=== PATIENT | female | born 1955 | race Caucasian/White ===

== ENCOUNTER 2020-10-12 09:03 | Emergency (ER) | payer BC, MEDICARE, OTHER ==
[2020-10-12] MEDS ORDERED: Sodium Chloride 0.9% 10 ML Syringe FLUSH PRN (09:19)
[2020-10-12] MEDS ORDERED: Sodium Chloride 0.9% 2.5 ML Syringe FLUSH PRN (09:19)
[2020-10-12] MEDS ORDERED: Sodium Chloride 0.9% 1,000 ML IV SCH (09:30)
--- NOTE | 2020-10-12 09:44 | EDM.PDOC ---
ED HPI GENERAL MEDICAL PROBLEM - General Chief Complaint: Flank Pain Stated Complaint: SPOTTING, L SIDE PAIN Time Seen by Provider: 10/12/20 09:12 Source of Information: Reports: Patient - History of Present Illness INITIAL COMMENTS - FREE TEXT/NARRATIVE: 65-year-old female presenting with back pain, constant for the last 2 weeks, located in the left flank. Previously had similar symptoms in the past, usually present when awakening but improved after walking around for a few hours and without any clear diagnosis prior work-up, however in the last 2 weeks it has now become more constant. She also reports for the last 2 weeks or so she has had vaginal spotting. Just a small amount, uses one panty liner for the whole day and describes it as occasional bright red spotting and other times brown-colored blood spotting. She does report that though she does not get menstrual periods, about once a year she does get several days of vaginal spotting, however it has never lasted this long. No chest pain or difficulty breathing. No fever or chills. No nausea or vomiting. No diarrhea. No dysuria. Blood in the urine. No blood in the stool. Duration: Week(s): (2) Location: Reports: Back. Denies: Radiates to Quality: Reports: Ache Improves with: Reports: None Worsens with: Reports: None L flank Pain Score (Numeric/FACES): 6 - Related Data Allergies Allergy/AdvReac Type Severity Reaction Status Date / Time adhesive Allergy Rash Verified 10/12/20 09:42 Penicillins Allergy Hives Verified 02/18/16 15:02 pseudoephedrine Allergy Itching Verified 02/18/16 15:02 Ujosfze-Twz-Asv Reductase Allergy Itching Verified 10/12/20 09:42 Inhibitor metal Allergy Cannot Uncoded 10/12/20 09:42 Remember Home Meds: Home Meds Gemfibrozil [Lopid] 1 tab PO BIDAC 02/18/16 [History] Insulin Aspart [NovoLOG] 5 unit SUBCUT TIDMEALS 02/18/16 [History] Insulin Detemir [Levemir Flextouch] 51 unit SQ BID 02/18/16 [History] Irbesartan 1 tab PO DAILY 02/18/16 [History] Venlafaxine HCl [Venlafaxine ER] 1 tab PO DAILY 02/18/16 [History] amLODIPine [Norvasc] 1 tab PO DAILY 02/18/16 [History] carvediloL [Carvedilol] 2 tab PO BID 02/18/16 [History] cephALEXin [Keflex] 1,000 mg PO BID #40 cap 10/12/20 [Rx] Past Medical History Cardiovascular History: Reports: Hypertension Genitourinary History: Reports: Acute Renal Failure [employer]IC[facility] History: Reports: Endocrine/Metabolic History: Reports: Diabetes, Type II Social & Family History - Family History Family Medical History: No Pertinent Family History ED ROS GENERAL - Review of Systems Review Of Systems: See Below Constitutional: Reports: No Symptoms Respiratory: Reports: No Symptoms Cardiovascular: Reports: No Symptoms GI/Abdominal: Reports: Constipation. Denies: Abdominal Pain, Black Stool, Bloody Stool, Diarrhea, Distension ED EXAM, GENERAL - Physical Exam Exam: See Below General Appearance: Alert, WD/WN, No Apparent Distress Head: Atraumatic, Normocephalic Neck: Normal Inspection, Supple Respiratory/Chest: No Respiratory Distress Cardiovascular: Regular Rate, Rhythm GI/Abdominal: Soft, Non-Tender, No Organomegaly, No Distention, No Mass Back Exam: Normal Inspection, Full Range of Motion. No: CVA Tenderness (L), CVA Tenderness (R), Decreased Range of Motion, Muscle Spasm, Paraspinal Tenderness, Vertebral Tenderness Extremities: Normal Inspection, Normal Range of Motion Neurological: Alert, Oriented, Normal Gait Psychiatric: Normal Affect, Normal Mood Skin Exam: Warm, Dry, Intact Course - Vital Signs Text/Narrative:: Flank pain with no CVA tenderness. Associated vaginal spotting. Symptoms have been ongoing/worsening for the last 2 weeks. Differential diagnosis includes AAA or dissection versus mass versus neoplasm versus renal stone. UA does appear to be infected, possible UTI. CT shows no renal stone and questionable likely chronic common iliac artery dissection/flap and enlarged uterus. No other acute pathology. Ultrasound performed of the uterus which shows thickening and polyps or cysts. Concern for possible neoplasm versus other etiology. All of the above were discussed with the patient. I discussed the CT findings with vascular surgery at [facility] who agree that the patient can seek outpatient treatment and feel that this may be an artifactual finding, but will follow up with the patient and recheck imaging. Patient will need to follow-up outpatient with [facility]IC[facility] as well for further evalu ation of the uterine wall thickening. The patient feels comfortable with the plan for all of the above. Antibiotics sent to the patient's pharmacy of choice Last Recorded V/S: Last Vital Signs Temp 96.7 F L 10/12/20 09:18 Pulse 72 10/12/20 16:53 Resp 18 10/12/20 16:53 BP 138/67 10/12/20 16:53 Pulse Ox 94 L 10/12/20 16:53 - Orders/Labs/Meds Orders: Active Orders 24 hr Category Date Time Status Sodium Chloride 0.9% [Normal Saline] 1,000 ml Med 10/12/20 09:30 Active IV ASDIRECTED Sodium Chloride 0.9% [Saline Flush] Med 10/12/20 09:19 Active 10 ml FLUSH ASDIRECTED PRN Sodium Chloride 0.9% [Saline Flush] Med 10/12/20 09:19 Active 2.5 ml FLUSH ASDIRECTED PRN Saline Lock Insert [OM.PC] Stat Oth 10/12/20 09:19 Ordered Medication Orders Sodium Chloride (Normal Saline) 1,000 mls @ 999 mls/hr IV ASDIRECTED KAIN Last Admin: 10/12/20 10:10 Dose: 999 mls/hr Documented by: FELICIA Sodium Chloride (Sodium Chloride 0.9% 10 Ml Syringe) 10 ml FLUSH ASDIRECTED PRN PRN Reason: Keep Vein Open Last Admin: 10/12/20 10:11 Dose: 10 ml Documented by: TERRANCEG Sodium Chloride (Sodium Chloride 0.9% 2.5 Ml Syringe) 2.5 ml FLUSH ASDIRECTED PRN PRN Reason: Keep Vein Open Last Admin: 10/12/20 10:11 Dose: 2.5 ml Documented by: FELICIA Labs: Laboratory Tests 10/12/20 10/12/20 10/12/20 Range/Units 09:25 09:30 09:30 WBC 8.93 (4.0-11.0) K/uL RBC 4.69 (4.30-5.90) M/uL Hgb 14.5 (12.0-16.0) g/dL Hct 45.0 (36.0-46.0) % MCV 95.9 (80.0-98.0) fL MCH 30.9 (27.0-32.0) pg MCHC 32.2 (31.0-37.0) g/dL RDW Std Deviation 47.8 (28.0-62.0) fl RDW Coeff of Derrick 14 (11.0-15.0) % Plt Count 181 (150-400) K/uL MPV 10.40 (7.40-12.00) fL Neut % (Auto) 62.7 (48.0-80.0) % Lymph % (Auto) 23.7 (16.0-40.0) % Caroline % (Auto) 9.9 (0.0-15.0) % Eos % (Auto) 3.4 (0.0-7.0) % Baso % (Auto) 0.3 (0.0-1.5) % Neut # (Auto) 5.6 (1.4-5.7) K/uL Lymph # (Auto) 2.1 (0.6-2.4) K/uL Caroline # (Auto) 0.9 H (0.0-0.8) K/uL Eos # (Auto) 0.3 (0.0-0.7) K/uL Baso # (Auto) 0.0 (0.0-0.1) K/uL Nucleated RBC % 0.0 /100WBC Nucleated RBCs # 0 K/uL INR Sodium 140 (136-145) mmol/L Potassium 4.4 (3.5-5.1) mmol/L Chloride 102 (98-107) mmol/L Carbon Dioxide 29.9 (21.0-32.0) mmol/L BUN 31 H (7.0-18.0) mg/dL Creatinine 1.3 H (0.6-1.0) mg/dL Est Cr Clr Drug Dosing TNP Estimated GFR (MDRD) 40.9 ml/min Glucose 152 H (74-106) mg/dL Calcium 9.3 (8.5-10.1) mg/dL Total Bilirubin 0.5 (0.2-1.0) mg/dL AST 24 (15-37) IU/L ALT 17 (14-63) IU/L Alkaline Phosphatase 111 (46-116) U/L Total Protein 7.9 (6.4-8.2) g/dL Albumin 3.5 (3.4-5.0) g/dL Globulin 4.4 H (2.6-4.0) g/dL Albumin/Globulin Ratio 0.8 L (0.9-1.6) Urine Color YELLOW Urine Appearance SLT CLOUDY Urine pH 5.5 (5.0-8.0) Ur Specific [place] 1.020 (1.001-1.035) Urine Protein NEGATIVE (NEGATIVE) mg/dL Urine Glucose (UA) NEGATIVE (NEGATIVE) mg/dL Urine Ketones NEGATIVE (NEGATIVE) mg/dL Urine Occult Blood LARGE H (NEGATIVE) Urine Nitrite NEGATIVE (NEGATIVE) Urine Bilirubin NEGATIVE (NEGATIVE) Urine Urobilinogen 0.2 (<2.0) EU/dL Ur Leukocyte Esterase MODERATE H (NEGATIVE) Urine RBC NONE SEEN (0-2/HPF) Urine WBC 11-15 (0-5/HPF) Ur Epithelial Cells MANY (NONE-FEW) Urine Bacteria 2+ H (NEGATIVE) Urine Mucus LIGHT (NONE-MOD) 10/12/20 Range/Units 09:30 WBC (4.0-11.0) K/uL RBC (4.30-5.90) M/uL Hgb (12.0-16.0) g/dL Hct (36.0-46.0) % MCV (80.0-98.0) fL MCH (27.0-32.0) pg MCHC (31.0-37.0) g/dL RDW Std Deviation (28.0-62.0) fl RDW Coeff of Derrick (11.0-15.0) % Plt Count (150-400) K/uL MPV (7.40-12.00) fL Neut % (Auto) (48.0-80.0) % Lymph % (Auto) (16.0-40.0) % Caroline % (Auto) (0.0-15.0) % Eos % (Auto) (0.0-7.0) % Baso % (Auto) (0.0-1.5) % Neut # (Auto) (1.4-5.7) K/uL Lymph # (Auto) (0.6-2.4) K/uL Caroline # (Auto) (0.0-0.8) K/uL Eos # (Auto) (0.0-0.7) K/uL Baso # (Auto) (0.0-0.1) K/uL Nucleated RBC % /100WBC Nucleated RBCs # K/uL INR 1.05 Sodium (136-145) mmol/L Potassium (3.5-5.1) mmol/L Chloride (98-107) mmol/L Carbon Dioxide (21.0-32.0) mmol/L BUN (7.0-18.0) mg/dL Creatinine (0.6-1.0) mg/dL Est Cr Clr Drug Dosing Estimated GFR (MDRD) ml/min Glucose (74-106) mg/dL Calcium (8.5-10.1) mg/dL Total Bilirubin (0.2-1.0) mg/dL AST (15-37) IU/L ALT (14-63) IU/L Alkaline Phosphatase (46-116) U/L Total Protein (6.4-8.2) g/dL Albumin (3.4-5.0) g/dL Globulin (2.6-4.0) g/dL Albumin/Globulin Ratio (0.9-1.6) Urine Color Urine Appearance Urine pH (5.0-8.0) Ur Specific [place] (1.001-1.035) Urine Protein (NEGATIVE) mg/dL Urine Glucose (UA) (NEGATIVE) mg/dL Urine Ketones (NEGATIVE) mg/dL Urine Occult Blood (NEGATIVE) Urine Nitrite (NEGATIVE) Urine Bilirubin (NEGATIVE) Urine Urobilinogen (<2.0) EU/dL Ur Leukocyte Esterase (NEGATIVE) Urine RBC (0-2/HPF) Urine WBC (0-5/HPF) Ur Epithelial Cells (NONE-FEW) Urine Bacteria (NEGATIVE) Urine Mucus (NONE-MOD) Meds: Medications Generic Name Dose Route Start Last Admin Trade Name Freq PRN Reason Stop Dose Admin Sodium Chloride 1,000 mls @ 999 mls/hr 10/12/20 09:30 10/12/20 10:10 Normal Saline IV 999 mls/hr ASDIRECTED KAIN Administration Sodium Chloride 10 ml 10/12/20 09:19 10/12/20 10:11 Sodium Chloride 0.9% 10 Ml Syringe FLUSH 10 ml ASDIRECTED PRN Administration Keep Vein Open Sodium Chloride 2.5 ml 10/12/20 09:19 10/12/20 10:11 Sodium Chloride 0.9% 2.5 Ml Syringe FLUSH 2.5 ml ASDIRECTED PRN Administration Keep Vein Open Discontinued Medications Generic Name Dose Route Start Last Admin Trade Name Marguerite PRN Reason Stop Dose Admin Ceftriaxone Sodium/Dextrose Confirm 10/12/20 10:24 10/12/20 11:12 Rocephin In Dextrose,Iso-Osm 1 Gm/50 Ml Administered 10/12/20 10:25 Not Given Dose 50 mls @ as directed .ROUTE .STK-MED ONE Ceftriaxone Sodium/Dextrose 1 50 mls @ 100 mls/hr 10/12/20 11:10 10/12/20 11:12 gm/ Premix IV 10/12/20 11:39 100 mls/hr ONETIME ONE Administration Iopamidol 100 ml 10/12/20 10:39 10/12/20 10:39 Iopamidol 755 Mg/Ml 500 Ml Multipack Bottle IVPUSH 10/12/20 10:40 100 ml ONETIME ONE Administration - Re-Assessments/Exams Free Text/Narrative Re-Assessment/Exam: 10/12/20 12:[address] scan findings with the patient. No known history of chronic aortic dissection. Discussed recommendation for pelvic ultrasound. She agrees with the plan. Discussed UA findings and recommendation for antibiotics which have already been given. 10/12/20 15:[address] White, the vascular surgeon at [facility] in regards to the common iliac artery dissection seen on CT that appears to be chronic. He is currently operating in the OR, but requested to send the images over and he will review them and call me back. I updated the patient on their plan and she agrees and will wait. She does report she is in pain, I offered pain medications of any type, however she declined and reports that she is able to tolerate the pain and does not want anything for pain currently. 10/12/20 16:34 Dr. White called me back after reviewing the images. He suspects artifact versus chronic and not the acute cause for her pain. Recommends outpatient follow-up, he will see her in the office and can reevaluate. I updated the patient on these recommendations. She agrees with this plan. Final discussion with the patient in regards to following up with the vascular surgeon as well as follow-up with [facility]IC[facility] for further evaluation of the endometrial thickening/polyp/cysts. She agrees to do so. Departure - Departure Time of Disposition: 16:36 Disposition: Home, Self-Care 01 Clinical Impression: Flank pain, UTI (urinary tract infection), Endometrial thickening on ultrasound, Iliac artery dissection - Discharge Information Prescriptions: cephALEXin [Keflex] 1,000 mg PO BID #40 cap Instructions: Incidental Abnormal Radiological Finding, Urinary Tract Infection, Adult, [id number], Flank Pain, Adult, [id number] Referrals: Raghavendra Pedraza MD [Primary Care Provider] - 1 Day Francisco Moreno MD [Ordering Only Provider] - 2 Weeks Forms: ED Department Discharge Additional Instructions: 1) pain in your back may be musculoskeletal. You may take Tylenol as needed for this pain. You also do have a urinary tract infection and this may be somewhat related to your pain. Please take the antibiotics as prescribed. 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 This was discussed with the vascular surgeon at [facility] who will see you in follow-up as an outpatient. Please call the office listed above to schedule an appointment soon as possible. 3) vaginal spotting. Thickened endometrium on ultrasound. Please follow-up with the [facility] IN[employer] AND APPLICATOR groups, as soon as possible to have a further work-up. Please bring the radiology read paperwork with you to your appointment. If you develop any worsening symptoms or any concerning symptoms, please return to the emergency department immediately. The following information is given to patients seen in the emergency department who are being discharged to home. This information is to outline your options for follow-up care. We provide all patients seen in our emergency department with a follow-up referral. The need for follow-up, as well as the timing and circumstances, are variable depending upon the specifics of your emergency department visit. If you don't have a primary care physician on staff, we will provide you with a referral. We always advise you to contact your personal physician following an emergency department visit to inform them of the circumstance of the visit and for follow-up with them and/or the need for any referrals to a consulting specialist. The emergency department will also refer you to a specialist when appropriate. This referral assures that you have the opportunity for follow-up care with a specialist. All of these measure are taken in an effort to provide you with optimal care, which includes your follow-up. Under all circumstances we always encourage you to contact your private physician who remains a resource for coordinating your care. When calling for follow-up care, please make the office aware that this follow-up is from your recent emergency room visit. If for any reason you are refused follow-up, please contact the Emergency Department at and asked to speak to the emergency department charge nurse. [facility] [address] [place] [id number] [facility] [address] [place] [id number] Sepsis Event Note (ED) - Evaluation Sepsis Screening Result: No Definite Risk - Focused Exam Vital Signs: Vital Signs Temp Pulse Resp BP Pulse Ox 10/12/20 16:53 72 18 138/67 94 L 10/12/20 15:00 76 76 H 138/65 97 10/12/20 14:00 68 17 174/66 H 96 10/12/20 11:00 68 17 168/74 H 95 10/12/20 10:00 63 16 155/68 H 97 10/12/20 09:18 96.7 F L 72 17 223/86 H 97 - My Orders Last 24 Hours: My Active Orders 10/12/20 09:19 Sodium Chloride 0.9% [Saline Flush] 10 ml FLUSH ASDIRECTED PRN Sodium Chloride 0.9% [Saline Flush] 2.5 ml FLUSH ASDIRECTED PRN Saline Lock Insert [OM.PC] Stat 10/12/20 09:30 Sodium Chloride 0.9% [Normal Saline] 1,000 ml IV ASDIRECTED - Assessment/Plan Last 24 Hours: My Active Orders 10/12/20 09:19 Sodium Chloride 0.9% [Saline Flush] 10 ml FLUSH ASDIRECTED PRN Sodium Chloride 0.9% [Saline Flush] 2.5 ml FLUSH ASDIRECTED PRN Saline Lock Insert [OM.PC] Stat 10/12/20 09:30 Sodium Chloride 0.9% [Normal Saline] 1,000 ml IV ASDIRECTED
[2020-10-12 10:05] LABS: BLOOD UREA NITROGEN,BUN 31 mg/dL (7.0-18.0); CARBON DIOXIDE,CO2 29.9 mmol/L (21.0-32.0); CHLORIDE,CL 102 mmol/L (98-107); GLUCOSE RANDOM 152 mg/dL (74-106); POTASSIUM,K 4.4 mmol/L (3.5-5.1); SODIUM,NA 140 mmol/L (136-145)
[2020-10-12] MEDS ORDERED: cefTRIAXone 1 GM in Sodium Chloride 0.9% 50 ML IV ONE (10:13)
[2020-10-12] MEDS ORDERED: Iopamidol 755 MG/ML 500 ML Multipack Bottle IVPUSH ONE (10:39)
[2020-10-12] MEDS ORDERED: cefTRIAXone 1 GM in Premix Bag 1 BAG IV ONE (11:10)
--- NOTE | 2020-10-12 11:52 | CT ---
INDICATION: Flank pain for 2 weeks. Possible dissection/AAA. TECHNIQUE: Volumetric helical scanning of the abdomen and pelvis was performed with 100 cc of Isovue 370 contrast material IV, imaging performed during the arterial phase of contrast enhancement. Coronal and sagittal reconstructions were obtained. COMPARISON: None. FINDINGS: The abdominal aorta is normal in caliber. There is no evidence of aortic dissection. Calcified plaques are demonstrated in the common iliac arteries, and on images 104-108 of series 402, a left common iliac artery dissection measuring 2.5 cm in length is noted. Flow is demonstrated in the false lumen. This is suspected to be chronic as the flap is somewhat thickened and irregular. No urinary tract stone or obstruction is evident. The kidneys are normal in size and shape and demonstrate normal early nephrograms. The bladder is distended. The uterus is mildly enlarged. The ovaries are grossly negative. Stones and/or sludge is present in the gallbladder. The liver, bile ducts, spleen, adrenal glands and pancreas are unremarkable. No lymphadenopathy or free fluid is demonstrated. No bowel abnormality is apparent. The lung bases are clear, and the heart size is normal. IMPRESSION: 1. Normal abdominal aorta. 2. 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 3. Negative for urinary tract stone and obstruction. 4. Stones and/or sludge in the gallbladder. 5. Mild uterine enlargement. Please note that all CT scans at this facility use dose modulation, iterative reconstruction, and/or weight-based dosing when appropriate to reduce radiation dose to as low as reasonably achievable. Dictated by Esau Lobato MD @ 10/12/2020 11:50:[address] Esau Lobato @ Oct 12 2020 11:50AM
--- NOTE | 2020-10-12 13:55 | US ---
INDICATION: Enlarged uterus, postmenopausal bleeding TECHNIQUE: Ultrasound pelvis transabdominal and transvaginal for better assessment or to better visualize the endometrium. Real time sonographic images with Spectral and color Doppler imaging of the ovaries were obtained. COMPARISON: CT scan abdomen pelvis 10/12/2020 FINDINGS: Uterus: 8.7 centimeter x 6.1 centimeter x 4.7 centimeter normal echotexture of the myometrium. 1.7 centimeter uterine fibroid. Endometrium: Transvaginal imaging was performed to better evaluate the endometrium. 18 millimeters in thickness. Complex material within the endometrial canal may represent cysts, polyps or fluid. Right ovary: The right ovary is not visualized Left ovary: The left ovary is not visualized. Cul-de-sac: No significant free fluid. IMPRESSION: 1.7 centimeter uterine fibroid. Thickened endometrium 18 millimeters with complex material within the endometrial canal possibly representing cysts, polyps or fluid. The ovaries are not visualized. Dictated by Enzo Acosta MD @ 10/12/2020 1:54:[address] Enzo Acosta @ Oct 12 2020 1:54PM
[2020-10-12 16:54] VITALS: BP 138/67; PULSE 72
== END 2020-10-12 17:05 | disposition home or self-care (01) ==
LOC: MW.ED 09:03
DX: N39.0 Urinary tract infection, site not specified (principal); I77.72 Dissection of iliac artery; R94.8 Abnormal results of function studies of other organs and systems; I10 Essential (primary) hypertension; E11.9 Type 2 diabetes mellitus without complications; Z79.4 Long term (current) use of insulin; Z79.899 Other long term (current) drug therapy; Z91.048 Other nonmedicinal substance allergy status; Z88.0 Allergy status to penicillin; Z88.8 Allergy status to other drugs, medicaments and biological substances
CPT/HCPCS: 36415; 74174; 76856; 80053; 81001; 85025; 85610; 96365; 99284; J0696; J7030; Q9967

== ENCOUNTER 2020-11-23 06:30 | Day surgery (SDC) | payer BC, MEDICARE, OTHER ==
--- NOTE | 2020-11-23 06:54 | PCM.PREANE ---
Preanesthetic Assessment - Procedure Proposed Procedure: Dx Hysteroscopy, D&C, Poss Polypectomy, Poss Myomectomy - Anesthesia/Transfusion/Family Hx Anesthesia History: Prior Anesthesia Without Reaction Other Type of Anesthesia Reaction Comment: "hard to put me under anesthesia" Family History of Anesthesia Reaction: No Transfusion History: No Prior Transfusion(s) - Physical Assessment NPO Status Date: 11/22/20 NPO Status Time: 20:30 Height: 5 ft 2.5 in Weight: 95.254 kg (BMI 37.8) ASA Class: 2 Airway Class: Mallampati = 3 Thyro-Mental Finger Breadths: 3 Mouth Opening Finger Breadths: 3 - Lab Values: [id number] - Allergies Allergies/Adverse Reactions: Allergies Allergy/AdvReac Type Severity Reaction Status Date / Time adhesive Allergy Rash Verified 11/20/20 07:47 Penicillins Allergy Hives Verified 11/20/20 07:47 pseudoephedrine Allergy Itching Verified 11/20/20 07:47 Aoxokbz-Bke-Aqd Reductase Allergy Muscle Verified 11/20/20 07:47 Inhibitor Weakness/sore metal Allergy Rash Uncoded 11/20/20 12:42 - Anesthesia Plan Free Text/Narrative:: GETA Pre-Op Medication Ordered: None Beta Chris: Carvedilol Med Last Dose Date: 11/23/20 Med Last Dose Time: 05:30 - Acknowledgements Anesthesia Type Planned: General Anesthesia Pt an Appropriate Candidate for the Planned Anesthesia: Yes Alternatives and Risks of Anesthesia Discussed w Pt/Guardian: Yes Pt/Guardian Understands and Agrees with Anesthesia Plan: Yes PreAnesthesia Questionnaire HEENT History: Reports: Impaired Vision, Other (See Below) Other HEENT History: wears glasses Cardiovascular History: Reports: High Cholesterol, Hypertension Respiratory History: Reports: None Gastrointestinal History: Reports: None Genitourinary History: Reports: Acute Renal Failure, Other (See Below) Other Genitourinary History: hx of dialysis Apr 2012 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: Musculoskeletal History: Reports: Gout, Osteoarthritis Other Musculoskeletal History: ruptured lumbar disc-pain down left leg Neurological History: Reports: None Psychiatric History: Reports: Depression, Other (See Below) Other Psychiatric History: depression in the past Endocrine/Metabolic History: Reports: Diabetes, Type II Hematologic History: Reports: None Immunologic History: Reports: None Oncologic (Cancer) History: Reports: None Dermatologic History: Reports: None - Infectious Disease History Infectious Disease History: Reports: Chicken Pox, Measles, Mumps - Past Surgical History HEENT Surgical History: Reports: None Female Surgical History: Reports: Section - SUBSTANCE USE Tobacco Use Status *Q: Former Tobacco User Tobacco Use Within Last Twelve Months: No - HOME MEDS Home Medications: Home Meds Insulin Detemir [Levemir Flextouch] 54 unit SQ BEDTIME 02/18/16 [History] Irbesartan 150 mg PO DAILY 02/18/16 [History] carvediloL [Carvedilol] 25 mg PO BID 02/18/16 [History] Aspirin [Adult Aspirin Regimen] 81 mg PO DAILY 11/20/20 [History] Cholecalciferol (Vitamin D3) [Vitamin D3] 1,000 units PO DAILY 11/20/20 [History] Colesevelam HCl 6 tab PO DAILY 11/20/20 [History] Furosemide 20 mg PO BID 11/20/20 [History] Hydrocodone/Acetaminophen [Hydrocodone-Acetamin 5-325 mg] 1 tab PO ASDIRECTED PRN 11/20/20 [History] Spironolactone [Aldactone] 12.5 mg PO DAILY 11/20/20 [History] allopurinoL [Zyloprim] 100 mg PO DAILY 11/20/20 [History]
[2020-11-23] MEDS ORDERED: Metoclopramide 10 MG/2 ML SDV ONE (07:07)
[2020-11-23] MEDS ORDERED: Dexmedetomidine 200 MCG/2 ML SDV ONE (07:07)
[2020-11-23] MEDS ORDERED: Ketorolac 30 MG/ML SDV ONE (07:07)
[2020-11-23] MEDS ORDERED: Dexamethasone 4 MG/ML 5 ML MDV ONE (07:07)
[2020-11-23] MEDS ORDERED: Ondansetron 4 MG/2 ML SDV ONE (07:07)
[2020-11-23] MEDS ORDERED: Lidocaine 2% 5 ML SDV ONE (07:07)
[2020-11-23] MEDS ORDERED: Ketamine 500 mg/10 ML MDV ONE (07:07)
[2020-11-23] MEDS ORDERED: fentaNYL 100 MCG/2 ML SDV ONE (07:08)
[2020-11-23] MEDS ORDERED: Propofol 200 MG/20 ML SDV ONE ×2 (07:08→08:50)
[2020-11-23] MEDS ORDERED: Sodium Chloride 0.9% 20 ML ONE (07:14)
[2020-11-23] MEDS ORDERED: Metoclopramide 10 MG/2 ML SDV IVPUSH PRN (08:23)
[2020-11-23] MEDS ORDERED: Naloxone 0.4 MG/ML Syringe IVPUSH PRN (08:23)
[2020-11-23] MEDS ORDERED: HYDROmorphone 2 MG/ML Syringe IVPUSH PRN (08:23)
[2020-11-23] MEDS ORDERED: Albuterol 0.083% 2.5 MG/3 ML Neb Soln NEB PRN (08:23)
[2020-11-23] MEDS ORDERED: fentaNYL 100 MCG/2 ML SDV IVPUSH PRN (08:23)
[2020-11-23] MEDS ORDERED: Ondansetron 4 MG/2 ML SDV IVPUSH PRN ×2 (08:23→08:48)
[2020-11-23] MEDS ORDERED: Morphine 2 MG/ML SYRINGE IVPUSH PRN (08:23)
--- NOTE | 2020-11-23 08:36 | PCM48HPAN ---
Post Anesthesia Note - EVALUATION WITHIN 48HRS OF ANESTHETIC Vital Signs in Normal Range: Yes Patient Participated in Evaluation: Yes Respiratory Function Stable: Yes Airway Patent: Yes Cardiovascular Function Stable: Yes Hydration Status Stable: Yes Pain Control Satisfactory: Yes Nausea and Vomiting Control Satisfactory: Yes Mental Status Recovered: Yes Vital Signs: Last Vital Signs Temp 36.7 C 11/23/20 07:03 Pulse 68 11/23/20 08:34 Resp 14 11/23/20 08:34 BP 90/48 L 11/23/20 08:34 Pulse Ox 95 11/23/20 08:34
--- NOTE | 2020-11-23 08:36 | PCM.POSTAN ---
POST ANESTHESIA ASSESSMENT - MENTAL STATUS Mental Status: Alert, Oriented - VITAL SIGNS Vital Signs: Last Vital Signs Temp 36.7 C 11/23/20 07:03 Pulse 68 11/23/20 08:34 Resp 14 11/23/20 08:34 BP 90/48 L 11/23/20 08:34 Pulse Ox 95 11/23/20 08:34 - RESPIRATORY Respiratory Status: Respiratory Rate WNL, Airway Patent, O2 Saturation Stable - CARDIOVASCULAR CV Status: Pulse Rate WNL, Blood Pressure Stable - GASTROINTESTINAL GI Status: No Symptoms - POST OP HYDRATION Hydration Status: Adequate & Stable
[2020-11-23] MEDS ORDERED: Ketorolac 30 MG/ML SDV IVPUSH PRN (08:48)
[2020-11-23] MEDS ORDERED: Promethazine 25 MG/ML SDV IM PRN (08:48)
[2020-11-23] MEDS ORDERED: Morphine 4 MG/ML Syringe IVPUSH PRN (08:48)
[2020-11-23] MEDS ORDERED: Acetaminophen/oxyCODONE 325-5 MG Tab PO PRN ×2 (08:48)
[2020-11-23] MEDS ORDERED: Ketorolac 30 MG/ML SDV IVPUSH ONE (08:48)
--- NOTE | 2020-11-23 08:55 | PCM.OPNOTE ---
- General Post-Op/Procedure Note Date of Surgery/Procedure: 11/23/20 Operative Procedure(s): Operative Hysteroscopy with removal of endometrial lesion Findings: Normal sized anteverted uterus 2cm endometrial lesion protruding into the endometrial cavity Pre Op Diagnosis: Postmenopausal bleeding Post-Op Diagnosis: Postmenopausal bleeding Anesthesia Technique: General ET Tube Primary Surgeon: Antonette Estrada Anesthesia Provider: Mansi Ledezma Pathology: Endometrial lesion Fluid Replacement, Intraop: 600 EBL in mLs: 300 Complications: None Condition: Good Free Text/Narrative:: Fluid deficit - 330 of NS Intake & Output 11/22/20 11/23/20 11/23/20 22:59 06:59 14:59 Intake Total 700 Balance 700
[2020-11-23 09:55] VITALS: BP 108/64; PULSE 69
--- NOTE | 2020-11-25 06:55 | OR ---
SURGEON: CORBIN MARCUS DATE OF PROCEDURE: 11/23/2020 PREOPERATIVE DIAGNOSES: A 65-year-old, postmenopausal, with postmenopausal bleeding and an endometrial polyp. POSTOPERATIVE DIAGNOSES: A 65-year-old, postmenopausal, with postmenopausal bleeding and an endometrial polyp. PROCEDURES: Operative hysteroscopy with removal of an endometrial lesion. ANESTHESIA: General. ESTIMATED BLOOD LOSS: 5 mL. INTRAVENOUS FLUIDS: 650. FLUID DEFICIT: 350 with normal saline. NOTES AND FINDINGS: Normal-sized anteverted uterus. Hysteroscopy showed an endometrial polyp originating from the posterior myometrial wall, was about 3 to 4 cm, was removed without difficulty. BRIEF HISTORY ABOUT THE PATIENT: 65-yo P2, who had occasional postmenopausal bleeding. However, she was referred to [facility] because of an incidental finding on imaging. Ultrasound was done and showed heterogeneity within the endometrium. Saline ultrasound was done, which confirmed like an endometrial polyp. As a result, the patient was counseled for removal, which she accepted. She was explained the risks, benefits, and alternatives, and she decided to proceed. PROCEDURE IN DETAIL: The patient was taken to the operating room, where general anesthesia was performed without difficulty. She was prepared and draped in the dorsal lithotomy position with Rubio stirrups. The speculum was placed in to expose the cervix. The cervix was dilated to accommodate the MyoSure hysteroscope. The lesion was noted within the endometrium and was then removed with the MyoSure without any difficulty, after which D and C was done. A curettage was done and sent for pathology after which all instruments were removed from the vagina. Fluid deficit was 350. The patient tolerated the procedure well. All instrument and pad counts were correct x2. SHAKA / LEVAR /[id number]
== END 2020-11-23 09:58 | disposition home or self-care (01) ==
LOC: MW.SDS 06:30
PROVIDERS: ATTEND Obstetrics & Gynecology
DX: N84.0 Polyp of corpus uteri (principal); I10 Essential (primary) hypertension; E78.00 Pure hypercholesterolemia, unspecified; E11.9 Type 2 diabetes mellitus without complications; Z98.890 Other specified postprocedural states; Z87.891 Personal history of nicotine dependence; Z79.899 Other long term (current) drug therapy; Z79.82 Long term (current) use of aspirin; Z88.0 Allergy status to penicillin; Z88.8 Allergy status to other drugs, medicaments and biological substances
CPT/HCPCS: 36415; 58558; 82947; 85025; 88305; J1100; J2704; 00952; J1885; J2405; J2765; J3010

== ENCOUNTER 2021-06-06 06:41 | Day surgery (SDC) | payer BC, OTHER, MEDICARE ==
[2021-06-04 12:01] LABS: CARBON DIOXIDE,CO2 26.5 mmol/L (21.0-32.0); POTASSIUM,K 4.1 mmol/L (3.5-5.1)
[~2021-06-06 06:41] MED LIST: Albuterol 0.083% 2.5 MG/3 ML Neb Soln NEB PRN; HYDROmorphone 1 MG/ML Syringe IVPUSH PRN; Lactated Ringers 1,000 ML IV SCH; Metoclopramide 10 MG/2 ML SDV IVPUSH PRN; Morphine 4 MG/ML VIAL IVPUSH PRN; Naloxone 0.4 MG/ML SDV IVPUSH PRN; Ondansetron 4 MG/2 ML SDV IVPUSH PRN; Scopolamine 1.5 MG Transdermal Patch ONE; Sodium Chloride 0.9% 10 ML Syringe FLUSH PRN; Sodium Chloride 0.9% 2.5 ML Syringe FLUSH PRN; Sodium Chloride 0.9% 20 ML SDV IV PRN; ceFAZolin 2 GM in Premix Bag 1 BAG IV ONE; fentaNYL 100 MCG/2 ML SDV IVPUSH PRN
[2021-06-06] MEDS ORDERED: Rocuronium Bromide 50 MG/5 ML Syringe ONE ×2 (07:31→09:45)
[2021-06-06] MEDS ORDERED: Dexmedetomidine 200 MCG/2 ML SDV ONE (07:31)
[2021-06-06] MEDS ORDERED: Midazolam 1 MG/ML 2 ML SDV ONE (07:31)
[2021-06-06] MEDS ORDERED: Dexamethasone 4 MG/ML 5 ML MDV ONE (07:31)
[2021-06-06] MEDS ORDERED: Lidocaine 2% 5 ML SDV ONE (07:31)
[2021-06-06] MEDS ORDERED: Water For Injection, Sterile 20 ML ONE (07:31)
[2021-06-06] MEDS ORDERED: fentaNYL 100 MCG/2 ML SDV ONE (07:31)
[2021-06-06] MEDS ORDERED: Propofol 200 MG/20 ML SDV ONE (07:31)
[2021-06-06] MEDS ORDERED: Esmolol 100 MG/10 ML SDV ONE (07:32)
[2021-06-06] MEDS ORDERED: Fluorescein 5 ML Vial ONE (07:36)
[2021-06-06] MEDS ORDERED: ePHEDrine 50 MG/ML SDV ONE (08:30)
[2021-06-06] MEDS ORDERED: Ketorolac 30 MG/ML SDV ONE (09:01)
[2021-06-06] MEDS ORDERED: Sugammadex Sodium 200 MG/2 ML VIAL ONE (09:01)
[2021-06-06] MEDS ORDERED: Ondansetron 4 MG/2 ML SDV ONE (09:01)
[2021-06-06] MEDS ORDERED: Glycopyrrolate 0.2 MG/ML SDV ONE (09:42)
[2021-06-06] MEDS ORDERED: Octyl 2-Cyanoacrylate 1 Tube ONE (09:51)
[2021-06-06] MEDS ORDERED: Ketorolac 30 MG/ML SDV IVPUSH ONE (10:53)
[2021-06-06] MEDS ORDERED: Ketorolac 30 MG/ML SDV IVPUSH PRN (10:53)
[2021-06-06] MEDS ORDERED: Acetaminophen/oxyCODONE 325-5 MG Tab PO PRN (11:00)
[2021-06-06] MEDS ORDERED: Morphine 4 MG/ML VIAL IVPUSH PRN (11:00)
[2021-06-06] MEDS ORDERED: Ondansetron 4 MG/2 ML SDV IVPUSH PRN (11:00)
[2021-06-06] MEDS ORDERED: Promethazine 25 MG/ML SDV IM PRN (11:00)
[2021-06-06] MEDS: Acetaminophen/oxyCODONE 325-5 MG Tab PO PRN ×2 (18:18→23:20)
[2021-06-07] MEDS: Acetaminophen/oxyCODONE 325-5 MG Tab PO PRN ×2 (07:09→12:08)
[2021-06-07 07:38] LABS: CARBON DIOXIDE,CO2 24.8 mmol/L (21.0-32.0); POTASSIUM,K 4.7 mmol/L (3.5-5.1)
[2021-06-07 09:54] VITALS: PULSE 78
[2021-06-07 12:13] VITALS: BP 128/66
== END 2021-06-07 13:34 | disposition home or self-care (01) ==
LOC: MW.SDS 06:41 → MW.MS 11:58 → MW.SDS 06-07 13:34
PROVIDERS: ATTEND Obstetrics & Gynecology
DX: D25.9 Leiomyoma of uterus, unspecified (principal); N80.0 Endometriosis of uterus; N87.9 Dysplasia of cervix uteri, unspecified; N83.312 Acquired atrophy of left ovary; N83.311 Acquired atrophy of right ovary; N72 Inflammatory disease of cervix uteri; Z79.899 Other long term (current) drug therapy; Z88.0 Allergy status to penicillin; Z88.8 Allergy status to other drugs, medicaments and biological substances; Z79.82 Long term (current) use of aspirin; Z91.048 Other nonmedicinal substance allergy status
CPT/HCPCS: 36415; 58571; 80048; 85025; 85027; 86850; 86900; 86901; A9270; J0131; J1100; J2250; J2704; J3010; J3490; J7120; J1885; J2405; J7030

== ENCOUNTER 2023-11-27 06:25 | Emergency (ER) | payer BC, MEDICARE, OTHER ==
[2023-11-27 06:44] LABS: BASOPHILS ABSOLUTE AUTO 0.03 K/uL (0.00-0.20); BASOPHILS PERCENT AUTO 0.3 % (0.0-1.0); EOSINOPHILS ABSOLUTE AUTO 0.21 K/uL (0.00-0.45); EOSINOPHILS PERCENT AUTO 1.9 % (0.0-6.0); HEMOGLOBIN 12.3 g/dL (12.0-16.0); IMMATURE GRAN ABSOLUTE AUTO 0.05 K/uL (0.00-0.05); IMMATURE GRAN PERCENT AUTO 0.5 % (0.0-0.4); LYMPHOCYTES ABSOLUTE AUTO 1.79 K/uL (1.00-4.80); LYMPHOCYTES PERCENT AUTO 16.4 % (24.0-44.0); MEAN CORPUSCULAR HEMOGLOBIN 29.1 pg (28.0-32.0); MEAN CORPUSCULAR HGB CONC 31.5 g/dL (32.0-36.0); MEAN CORPUSCULAR VOLUME 92.2 fL (83.0-99.0); MEAN PLATELET VOLUME 9.8 fL (9.4-12.3); MONOCYTES ABSOLUTE AUTO 0.79 K/uL (0.00-0.80); MONOCYTES PERCENT AUTO 7.2 % (0.0-8.0); NEUTROPHILS ABSOLUTE AUTO 8.07 K/uL (1.80-7.70); NEUTROPHILS PERCENT AUTO 73.7 % (41.0-71.0); PLATELET COUNT,PLT 195 K/uL (150-400); RED BLOOD CELL COUNT 4.23 M/uL (4.10-5.30); WHITE BLOOD CELL COUNT,WBC 10.94 K/uL (3.9-11.3)
[2023-11-27 06:58] LABS: A/G RATIO 0.8 (0.9-1.6); ALBUMIN 3.5 g/dL (3.4-5.0); BILIRUBIN TOTAL 0.4 mg/dL (0.2-1.0); CALCIUM 9.3 mg/dL (8.5-10.1); CARBON DIOXIDE,CO2 29.5 mmol/L (21.0-32.0); CREATININE 2.1 mg/dL (0.6-1.0); EST CRCL DRUG DOSING (CG) 19.71 mL/min; PROTEIN TOTAL,TP 7.7 g/dL (6.4-8.2)
[2023-11-27 07:35] LABS: LIPASE 68 U/L (16-77)
[2023-11-27 07:44] LABS: APPEARANCE,URINE CLEAR; BILIRUBIN,URINE NEGATIVE (NEGATIVE); COLOR,URINE YELLOW; GLUCOSE,URINE NEGATIVE (NEGATIVE); KETONES,URINE NEGATIVE (NEGATIVE); LEUKOCYTE ESTERASE,URINE NEGATIVE (NEGATIVE); NITRITE,URINE NEGATIVE (NEGATIVE); OCCULT BLOOD,URINE TRACE-INTACT (NEGATIVE); PROTEIN,URINE NEGATIVE (NEGATIVE); UROBILINOGEN,URINE 0.2 EU/dL (<2.0)
[2023-11-27 07:53] LABS: BACTERIA,URINE NOT SEEN (NEGATIVE); EPITHELIAL CELLS,URINE RARE (NONE-FEW); RBC,URINE 0-1 (0-2/HPF); WBC,URINE 0-1 (0-5/HPF)
[2023-11-27 07:54] LABS: HYALINE CASTS,URINE 0-1 (0-2/LPF)
[2023-11-27] MEDS: Sodium Chloride 0.9% 10 ML Syringe FLUSH PRN (09:06)
[2023-11-27] MEDS: Aspirin 325 MG Tab PO ONE (09:06)
[2023-11-27] MEDS: LORazepam 0.5 MG Tab PO ONE (09:06)
[2023-11-27] MEDS: Sodium Chloride 0.9% 2.5 ML Syringe FLUSH PRN (09:06)
[2023-11-27] MEDS: Sodium Chloride 0.9% 1,000 ML IV ONE (10:20)
[2023-11-27 12:31] LABS: CALCIUM 8.7 mg/dL (8.5-10.1); CARBON DIOXIDE,CO2 27.1 mmol/L (21.0-32.0); CREATININE 1.9 mg/dL (0.6-1.0); EST CRCL DRUG DOSING (CG) 21.79 mL/min; POTASSIUM,K 5.6 mmol/L (3.5-5.1)
[2023-11-27] MEDS: Sodium Polystyrene Sulfonate 15 GM/60 ML Susp 60 ML Bot PO ONE (15:18)
[2023-11-27 15:21] VITALS: BP 145/75; PULSE 74
== END 2023-11-27 15:20 | disposition home or self-care (01) ==
LOC: MW.ED 06:25
DX: E11.649 Type 2 diabetes mellitus with hypoglycemia without coma (principal); I12.9 Hypertensive chronic kidney disease with stage 1 through stage 4 chronic kidney disease, or unspecified chronic kidney disease; N18.9 Chronic kidney disease, unspecified; E11.22 Type 2 diabetes mellitus with diabetic chronic kidney disease; N17.9 Acute kidney failure, unspecified; E87.5 Hyperkalemia; E78.00 Pure hypercholesterolemia, unspecified; M19.90 Unspecified osteoarthritis, unspecified site; Z79.899 Other long term (current) drug therapy; Z75.8 Other problems related to medical facilities and other health care; Z79.4 Long term (current) use of insulin; Z91.048 Other nonmedicinal substance allergy status; Z88.0 Allergy status to penicillin; Z88.8 Allergy status to other drugs, medicaments and biological substances
CPT/HCPCS: 36415; 80048; 80053; 81001; 82947; 83690; 84132; 84484; 85025; 93005; 96360; 99285; A9270; J3490; J7030

== ENCOUNTER 2024-10-13 12:09 | Emergency (ER) | payer BC, OTHER ==
[2024-10-13] MEDS: Lactated Ringers 1,000 ML IV SCH (13:52)
[2024-10-13 14:01] LABS: BASOPHILS ABSOLUTE AUTO 0.02 K/uL (0.00-0.20); BASOPHILS PERCENT AUTO 0.3 % (0.0-1.0); EOSINOPHILS ABSOLUTE AUTO 0.14 K/uL (0.00-0.45); EOSINOPHILS PERCENT AUTO 2.2 % (0.0-6.0); HEMATOCRIT 31.9 % (37.0-47.0); HEMOGLOBIN 10.2 g/dL (12.0-16.0); IMMATURE GRAN ABSOLUTE AUTO 0.02 K/uL (0.00-0.05); IMMATURE GRAN PERCENT AUTO 0.3 % (0.0-0.4); LYMPHOCYTES ABSOLUTE AUTO 2.18 K/uL (1.00-4.80); LYMPHOCYTES PERCENT AUTO 34.3 % (24.0-44.0); MEAN CORPUSCULAR VOLUME 93.8 fL (83.0-99.0); MEAN PLATELET VOLUME 9.7 fL (9.4-12.3); MONOCYTES ABSOLUTE AUTO 0.93 K/uL (0.00-0.80); MONOCYTES PERCENT AUTO 14.6 % (0.0-8.0); NEUTROPHILS ABSOLUTE AUTO 3.06 K/uL (1.80-7.70); NEUTROPHILS PERCENT AUTO 48.3 % (41.0-71.0); PLATELET COUNT,PLT 136 K/uL (150-400); WHITE BLOOD CELL COUNT,WBC 6.35 K/uL (3.9-11.3)
[2024-10-13 14:34] LABS: A/G RATIO 0.7 (0.9-1.6); ALBUMIN 2.9 g/dL (3.4-5.0); BILIRUBIN TOTAL 0.5 mg/dL (0.2-1.0); CALCIUM 8.5 mg/dL (8.5-10.1); CARBON DIOXIDE,CO2 32.2 mmol/L (21.0-32.0); CREATININE 3.4 mg/dL (0.6-1.0); POTASSIUM,K 4.8 mmol/L (3.5-5.1); PROTEIN TOTAL,TP 6.8 g/dL (6.4-8.2)
[2024-10-13 15:29] VITALS: BP 115/57; PULSE 63
[2024-10-13] MEDS: Calcium Chloride 10% 1 GM/10 ML Syringe IVPUSH ONE (16:49)
[2024-10-13] MEDS: Ondansetron 4 MG/2 ML SDV IVPUSH ONE (16:49)
[2024-10-13] MEDS: Glucagon,Human Recombinant 1 MG Vial IVPUSH ONE (17:16)
== END 2024-10-13 17:41 ==
LOC: MW.ED 12:09
DX: I95.9 Hypotension, unspecified (principal); I49.9 Cardiac arrhythmia, unspecified; J32.9 Chronic sinusitis, unspecified; I10 Essential (primary) hypertension; E78.00 Pure hypercholesterolemia, unspecified; E11.9 Type 2 diabetes mellitus without complications; M19.90 Unspecified osteoarthritis, unspecified site; Z88.0 Allergy status to penicillin; Z88.8 Allergy status to other drugs, medicaments and biological substances; Z91.048 Other nonmedicinal substance allergy status; Z79.4 Long term (current) use of insulin; Z79.82 Long term (current) use of aspirin; Z79.890 Hormone replacement therapy; Z79.899 Other long term (current) drug therapy; Z75.3 Unavailability and inaccessibility of health-care facilities
CPT/HCPCS: 36415; 71045; 80053; 83735; 83880; 84484; 85025; 85379; 93005; 96361; 96374; 96375; 99285; J1610; J2405; J7120; 93010; J3490